=== PATIENT | male | born 1950 | race Caucasian/White ===

== ENCOUNTER 2019-03-31 11:34 | Emergency (ER) | payer MEDICARE, BC ==
[2019-03-31] MEDS ORDERED: Sodium Chloride 0.9% 10 ML Syringe FLUSH PRN (12:00)
--- NOTE | 2019-03-31 12:01 | EDM.PDOC ---
Addendum entered and electronically signed by Cory Flores MD 03/31/19 13 :37: Original Note: <MieshaPatrick Cristobal - Last Filed: 03/31/19 13:04> ED HPI GENERAL MEDICAL PROBLEM - General Chief Complaint: Gastrointestinal Problem Stated Complaint: STOOL PROBLEMS Time Seen by Provider: 03/31/19 11:48 Source of Information: Reports: Patient, RN Notes Reviewed - History of Present Illness INITIAL COMMENTS - FREE TEXT/NARRATIVE: 68-year-old male comes in with bloody diarrhea. This started with normal diarrhea yesterday morning and after about 3 episodes he started having with diarrhea as well. He has not been eating but has been drinking a lot of water trying to maintain hydration. He continued having episodes of bloody diarrhea every 3-4 hours through the night and now somewhat better for the last 4-5 hours. Occasional upset feeling in his stomach but no major pain or cramping. Been no vomiting. No chest pain fever or chills. He did eat some food and then some leftovers the day before he became ill, 2 days ago which could possibly have made him ill. No other family members ill at this time. He did have a normal colonoscopy about 2-1/2 years ago. - Related Data Allergies Allergy/AdvReac Type Severity Reaction Status Date / Time No Known Allergies Allergy Verified 03/31/19 11:51 Home Meds: Home Meds Ciprofloxacin HCl [Cipro] 500 mg PO BID #10 tablet 03/31/19 [Rx] Past Medical History Cardiovascular History: Reports: Hypertension Gastrointestinal History: Reports: Chronic Constipation - Past Surgical History Cardiovascular Surgical History: Reports: Cardiac Ablation GI Surgical History: Reports: Hernia, Inguinal Dermatological Surgical History: Reports: Other (See Below) Social & Family History - Tobacco Use Smoking Status *Q: Never Smoker Second Hand Smoke Exposure: No - Caffeine Use Caffeine Use: Reports: Coffee, Soda - Recreational Drug Use Recreational Drug Use: No ED ROS GENERAL - Review of Systems Review Of Systems: See Below Constitutional: Denies: Fever, Chills, Diaphoresis HEENT: Reports: No Symptoms Respiratory: Denies: Shortness of Breath Cardiovascular: Denies: Chest Pain GI/Abdominal: Reports: Abdominal Pain (Mild cramps, gone), Diarrhea, Hematochezia. Denies: Hematemesis, Melena, Nausea, Vomiting Skin: Reports: No Symptoms Neurological: Reports: No Symptoms ED EXAM, GI/ABD - Physical Exam Exam: See Below General Appearance: Alert, No Apparent Distress Head: Atraumatic Neck: Supple Respiratory/Chest: No Respiratory Distress, Lungs Clear Cardiovascular: Regular Rate, Rhythm GI/Abdominal Exam: Soft, Non-Tender. No: Guarding, Rebound Extremities: Normal Inspection, Normal Range of Motion Skin Exam: Warm, Dry, Normal Color Course - Vital Signs Last Recorded V/S: Last Vital Signs Temp 36.7 C 03/31/19 11:47 Pulse 74 03/31/19 11:47 Resp 16 03/31/19 11:47 BP 157/95 H 03/31/19 11:47 Pulse Ox 98 03/31/19 11:47 - Orders/Labs/Meds Orders: Active Orders 24 hr Category Date Time Status Peripheral IV Care [RC] . DIRECTED Care 03/31/19 12:01 Active Sodium Chloride 0.9% [Normal Saline] 1,000 ml Med 03/31/19 12:15 Active IV ONETIME Sodium Chloride 0.9% [Saline Flush] Med 03/31/19 12:00 Active 10 ml FLUSH ASDIRECTED PRN Peripheral IV Insertion Adult [OM.PC] Stat Oth 03/31/19 12:01 Ordered Medication Orders Sodium Chloride (Normal Saline) 1,000 mls @ 999 mls/hr IV ONETIME [facility] Last Admin: 03/31/19 12:28 Dose: 999 mls/hr Sodium Chloride (Saline Flush) 10 ml FLUSH ASDIRECTED PRN PRN Reason: Keep Vein Open Last Admin: 03/31/19 12:28 Dose: 10 ml Labs: Laboratory Tests 03/31/19 03/31/19 Range/Units 12:25 12:35 WBC 7.95 (4.23-9.07) K/mm3 RBC 4.43 L (4.63-6.08) M/mm3 Hgb 14.0 (13.7-17.5) gm/dl Hct 42.4 (40.1-51.0) % MCV 95.7 H (79.0-92.2) fl MCH 31.6 (25.7-32.2) pg MCHC 33.0 (32.2-35.5) g/dl RDW Std Deviation 44.2 H (35.1-43.9) fL Plt Count 284 (163-337) K/mm3 MPV 9.6 (9.4-12.3) fl Neut % (Auto) 69.3 H (34.0-67.9) % Lymph % (Auto) 18.4 L (21.8-53.1) % [place] % (Auto) 10.6 (5.3-12.2) % Eos % (Auto) 1.3 (0.8-7.0) Baso % (Auto) 0.3 (0.1-1.2) % Neut # (Auto) 5.52 H (1.78-5.38) K/mm3 Lymph # (Auto) 1.46 (1.32-3.57) K/mm3 [place] # (Auto) 0.84 H (0.30-0.82) K/mm3 Eos # (Auto) 0.10 (0.04-0.54) K/mm3 Baso # (Auto) 0.02 (0.01-0.08) K/mm3 Sodium 136 (136-145) mEq/L Potassium 4.5 (3.5-5.1) mEq/L Chloride 102 (98-107) mEq/L Carbon Dioxide 26 (21-32) mEq/L Anion Gap 12.5 (5-15) BUN 20 H (7-18) mg/dL Creatinine 1.3 (0.7-1.3) mg/dL Est Cr Clr Drug Dosing 59.69 mL/min Estimated GFR (MDRD) 55 (>60) mL/min BUN/Creatinine Ratio 15.4 (14-18) Glucose 122 H (80-115) mg/dL Calcium 9.6 (8.5-10.1) mg/dL Total Bilirubin 0.8 (0.2-1.0) mg/dL AST 29 (15-37) U/L ALT 49 (16-63) U/L Alkaline Phosphatase 63 (46-116) U/L Total Protein 8.4 H (6.4-8.2) g/dl Albumin 4.5 (3.4-5.0) g/dl Globulin 3.9 gm/dL Albumin/Globulin Ratio 1.2 (1-2) Meds: Medications Generic Name Dose Route Start Last Admin Trade Name Freq PRN Reason Stop Dose Admin Sodium Chloride 1,000 mls @ 999 mls/hr 03/31/19 12:15 03/31/19 12:28 Normal Saline IV 999 mls/hr ONETIME [facility]RISTI Administration Sodium Chloride 10 ml 03/31/19 12:00 03/31/19 12:28 Saline Flush FLUSH 10 ml ASDIRECTED PRN Administration Keep Vein Open Departure - Departure Time of Disposition: 13:20 Disposition: Home, Self-Care 01 Condition: Fair Clinical Impression: Rectal bleeding - Discharge Information Prescriptions: Ciprofloxacin HCl [Cipro] 500 mg PO BID #10 tablet Referrals: PCP,None [Primary Care Provider] - Forms: ED Department Discharge Additional Instructions: The blood you are noticing with the diarrhea is due to infection/inflammation of your distal intestine and colon. Start cipro antibiotic now, 500 mg twice daily which will help this clear more quickly. This prescription has been sent electronically to clinic pharmacy located at the [facility] just south of [facility]. Also start taking probiotic and take that 2-3 times a day for 5 days or until completely back to normal. Drink small amounts of clear liquids until tomorrow such as Gatorade or Powerade. Usually sipping 5-6 ounces an hour works well to make sure you don't get dehydrated. Once hungry advance diet to soda crackers and then to broth soup such as chicken noodle /turkey rice etc. Avoid all dairy products and no apple juice or grape juice until stools are formed backup. Should notice no further blood in the stools after 48 hours of starting the antibiotics. It may be several days to have a normal formed bowel movement. Return to the ED or follow-up with personal care physician if any further problems occur.. Sepsis Event Note - Evaluation Sepsis Screening Result: No Definite Risk - Focused Exam Vital Signs: Vital Signs Temp Pulse Resp BP Pulse Ox 03/31/19 11:47 36.7 C 74 16 157/95 H 98 Date Exam was Performed: 03/31/19 Time Exam was Performed: 13:04 <Cory Flores - Last Filed: 03/31/19 13:33> Past Medical History Gastrointestinal History: Reports: Other (See Below) (Patient had a colonoscopy about 2 years ago with a clean bill of health.) Course - Re-Assessments/Exams Free Text/Narrative Re-Assessment/Exam: 03/31/19 13:24Blood cell count is 7.95 with 69% neutrophils. Hemoglobin is 1415.0 with hematocrit of 42.4. Platelet count is normal at 284,000. Patient will therefore be discharged to home per Dr. Whiteside's discharge summary. Sepsis Event Note - Focused Exam Date Exam was Performed: 03/31/19 Time Exam was Performed: 13:31
[2019-03-31] MEDS ORDERED: Sodium Chloride 0.9% 1,000 ML IV SCH (12:15)
== END 2019-03-31 14:14 | disposition home or self-care (01) ==
LOC: JD.ED 11:34
DX: K62.5 Hemorrhage of anus and rectum (principal)
CPT/HCPCS: 36415; 80053; 85025; 96360; 96361; 99284; J7030; 99283